=== PATIENT | female | born 1960 | race African-American/Black ===

== ENCOUNTER 2018-12-28 05:50 | Inpatient (IN) | payer BC ==
[2018-12-21 12:50] LABS: HEMATOCRIT 40.1 % (37.0-47.0); MCH 28.9 pg (26.0-34.0); MCHC 32.4 g/dL (28.0-37.0); MCV 89.4 fL (80.0-100.0); RBC 4.49 mil/uL (4.20-5.00); RDW 14.5 % (10.5-14.5); WBC 6.3 thou/uL (4.0-11.0)
[2018-12-21 12:58] LABS: ALBUMIN 3.9 g/dL (3.4-5.0); CALCIUM 9.7 mg/dL (8.5-10.1); CREATININE 0.7 mg/dL (0.6-1.0); POTASSIUM 4.4 mmol/L (3.5-5.1)
[2018-12-21 13:01] LABS: PROTIME 9.4 Seconds (9.3-11.4)
[2018-12-21 13:13] LABS: URINE BILIRUBIN NEGATIVE (Negative); URINE BLOOD NEGATIVE (Negative); URINE CLARITY CLEAR; URINE COLOR YELLOW; URINE GLUCOSE-RANDOM* NEGATIVE (Negative); URINE KETONES NEGATIVE (Negative); URINE LEUKOCYTES-REFLEX NEGATIVE (Negative); URINE NITRITE-REFLEX NEGATIVE (Negative); URINE PROTEIN (DIPSTICK) NEGATIVE (Negative); URINE SPECIFIC GRAVITY 1.025 (1.005-1.035); URINE UROBILINOGEN 0.2 E.U./dl (0.2-1.0)
--- NOTE | 2018-12-21 16:17 | EKG ---
[address] [place] [address] ELECTROCARDIOGRAM REPORT Name: OTF ZAMARRIPA Room #: PRE IN M.R.#: [id number] ������������������ Admission: ������������������ Attend Phys: Ish Rodriguez MD Discharge: ������������������ Date of : 62 Report #: [id number] ����������������������������������������������������������������� [id number] THIS REPORT FOR: //name// [facility] Test Date: 2018-12-21 Test Time: 13:14:55 Pat Name: OTF ZAMARRIPA Department: Room: Gender: F Intervention Analyst: landon : 1960 Requested By: Ish Rodriguez Order Number: [id number] MD: Mckinley Riddle Measurements Intervals Brandt Rate: 71 P: 42 ME: 161 QRS: 1 QRSD: 82 T: 8 QT: 374 QTc: 407 Interpretive Statements Sinus rhythm Normal tracing Compared to ECG 02/15/2009 16:38:35 No significant changes Electronically Signed On 12-21-2018 16:17:20 CRACKING UNIT OPERATOR by Mckinley Riddle [email or web address] ��������������������������������������������� <ELECTRONICALLY SIGNED> ���������������������������������������� By: Mckinley Riddle MD, [facility] ��������������������������������������������� 12/21/18 1617 1314 1314 Mckinley Riddle MD, FACC /EPI
[~2018-12-28] VITALS: Ht 157.5 cm; Wt 99.3 kg
--- NOTE | ~2018-12-28 | O ---
[facility] [place] [address] OPERATIVE REPORT Name: OTF ZAMARRIPA Room #: 418-P ADM IN M.R.#: [id number] Admission: 12/28/18 ������������������ Attend Phys: Ish Rodriguez MD Discharge: ������������������ Date of : 62 Report #: [id number] THIS REPORT FOR: //name// CC: ROLY ALLEN Physician staff Ish Rodriguez DATE OF SERVICE: 12/28/2018 PREOPERATIVE DIAGNOSIS: Right knee osteoarthritis. POSTOPERATIVE DIAGNOSIS: Right knee osteoarthritis. PROCEDURE: Right total knee arthroplasty using Navio robotic assistance. SURGEON: Ish Rodriguez MD TOOL ENGINE LATHE SET UP OPERATOR: Cammie Ervin PA-C. INDICATION FOR ASSISTANCE: Throughout the case, extensive retraction and manipulation of the knee was required. This was afforded to me by my anesthesiology physician assistant. ANESTHESIA: LMA with an adductor canal block. IMPLANTS: [employer]hew size 5 Journey II BCS Oxinium femur, a size 3 tibia, a size 11 polyethylene and a size 32 patella. TOURNIQUET TIME: 70 minutes. ESTIMATED BLOOD LOSS: 25 mL. COMPLICATIONS: None. SPECIMENS: None. CONDITION UPON LEAVING THE OPERATING ROOM: Stable. INDICATIONS FOR PROCEDURE: The patient is a 58-year-old female with severe right knee osteoarthritis. She has failed conservative measures for this and after discussion with her, she elected for right total knee arthroplasty. DESCRIPTION OF PROCEDURE: Risks, benefits, alternatives, complications were discussed in detail with the patient including but not limited to risk of anesthesia, risk of damage to nerves, arteries and blood vessels, risk for infection and bleeding, risk for continued knee pain and need for reoperation. Informed consent was obtained from the patient. The right knee was [facility] [address] [place] [address] OPERATIVE REPORT Name: OTF ZAMARRIPA Room #: 418-P ADM IN M.R.#: [id number] Admission: 12/28/18 ������������������ Attend Phys: Ish Rodriguez MD Discharge: ������������������ Date of : 62 Report #: [id number] appropriately marked in the preoperative holding area. Adductor canal block was placed by Anesthesia. She was brought to the operating room and placed in the supine position on operating room table. LMA anesthesia was induced without complication. Tourniquet was placed on the right thigh. Right lower extremity was prepped and draped in normal sterile fashion. Timeout was performed properly identifying the patient and procedure as well as the instrumentation and the implants. All in the operating room were in agreement. Right lower extremity was exsanguinated. Tourniquet was inflated. Tourniquet time was 70 minutes. A standard midline approach to the knee was made with a 10 blade through the skin. Dissection was taken down sharply to the fascia. Deep flaps were developed medially and laterally. A fresh 10 blade was used to make a medial parapatellar arthrotomy and the knee was inspected. There was severe tricompartmental osteoarthritis. ACL and PCL were removed sharply. Anterior horns of the meniscus were removed sharply and reference pins were placed into the femur and the tibia for the Navio system. The knee was then digitally mapped using the Navio robotic assistance. Intraoperative plan was made. We sized a size 5 femur and a size 3 tibia. After acceptance of an intraoperative plan, the distal femoral cut was made with a Navio bur. The femoral cutting block was then pinned in place and the femoral cuts were made. Attention was then turned to the tibia. Tibial resection was then made using the Navio system for placement of the resection guide. After this, flexion and extension gaps were checked and found to have good balance in flexion and extension both medially and laterally. The tibia was sized, found to be a size 3. A size 3 tibial trial was placed and then punched. A size 5 femoral trial was placed and a box cut was made. This was then trialed with a size 10 and then a size 11 polyethylene. The size 11 polyethylene had the best fit throughout range of motion with a millimeter laxity both medially and laterally throughout range of motion. A 5 mm was taken off the posterior surface of the patella and a size 32 patellar trial was placed. The knee was then taken through range of motion, found to have good patellar tracking. After this, trial components were removed. Bony ends were thoroughly irrigated with normal saline. A final size 3 tibia, a size 5 Journey II BCS Oxinium femur and a size 32 patella were cemented in place using standard cementation techniques. While the cement cured, a periarticular injection consisting of morphine, ropivacaine, epinephrine and Toradol was placed around the knee joint capsule. After the cement cured, the tourniquet was deflated. Hemostasis was obtained with Bovie cautery. A final size 11 polyethylene was placed. A gram of vancomycin was placed deep in the joint. Fascia was closed with 0 Vicryl, skin was closed with 2-0 Vicryl, 3-0 Monocryl. Dermabond and a OZ dressing was applied. The patient tolerated this procedure well and went to recovery room under care of Anesthesia postoperatively. ��������������������������������������������� ���������������������������������������� By: ��������������������������������������������� 1654 2101 Ish Rodriguez MD /nt
[~2018-12-28 05:50] MED LIST: ALEVE220 MG PO; APAP650 PO; CYMBALTA60 MG PO; FISH OIL 1,001000 M2 PO; HAIR, SKIN AND1 EAC1 PO; HAIR, SKIN AND1 EAC2 PO; HYDROCODON-ACE1 EAC8 PO; IBUPROFEN 400400 M1 PO; LIPITOR 20 MG T20 M1 PO; MELATONIN5 M1 PO; STOOL SOFTENER100 M1 PO; VITAMIN D3400 UNIT PO; VITAMIN E400 UNIT PO; ZANTAC 150MG T150 MG PO
[2018-12-28 11:10] VITALS: BP 137/81
--- NOTE | 2018-12-28 18:25 | NUR ---
PT ARRIVED 1645 PT ALERT XS 4 FLUIDS INFUSING. PT CLEAR LIQUID DIET. ICE TO RIGHT KNEE. FAMILY AT BEDSIDE . V.S. TAKEN NO PAIN.
[2018-12-28 18:39] VITALS: BP 142/90
[2018-12-28 19:42] VITALS: BP 154/92
[2018-12-29 00:01] VITALS: BP 150/88
[2018-12-29 01:45] VITALS: BP 158/80
[2018-12-29 06:18] LABS: HEMATOCRIT 33.1 % (37.0-47.0); HEMOGLOBIN 10.6 gm/dL (12.0-15.0); MCHC 32.1 g/dL (28.0-37.0); MCV 90.5 fL (80.0-100.0); RBC 3.65 mil/uL (4.20-5.00); RDW 14.5 % (10.5-14.5); WBC 8.3 thou/uL (4.0-11.0)
--- NOTE | 2018-12-29 06:39 | NUR ---
ASSUMED CARE AT 1900, ASSESSMENT COMPLETED. PT REPORTS MILD PAIN IN RIGHT KNEE, STILL SLIGHTLY NUMB FROM NERVE BLOCK. SWELLING IN RIGHT KNEE, WITH ICE PACK ON KNEE, OZ DRESSING INTACT. DENIES NAUSEA, TOLERATING DIET VERY WELL. DENIES SOB. ASKED FOR PAIN PILL ONCE THIS AM. CPAP ON OVERNIGHT. NO OTHER CONCERNS, WILL CONTINUE TO MONITOR.
[2018-12-29 07:30] VITALS: BP 128/81
[2018-12-29] MEDS ORDERED: NEURONTIN 300300 M1 PO (10:41)
[2018-12-29] MEDS ORDERED: TRI-BUFFERED A325 M1 PO (10:41)
--- NOTE | 2018-12-29 12:43 | NUR ---
ASSESSMENT-PT LIVES AT HOME WITH HER . SHE SAYS SHE HAS A WALKER AT HOME ALREADY THAT SHE CAN USE. PT SAYS SHE HAS HER OUTPT APPT ALREADY WELL. PT HAS 6 STEPS WITH A RAIL TO ENTER THE HOME THEN ALL ON THAT LEVEL. IN GOOD HEALTH AND ABLE TO ASSIST HER AT HOME. PT HAS OTHER FAMILY IN THE AREA WELL TAHT CAN ASSIST. FOLLOWING TO ASSIST WITH DC PLANNING.
--- NOTE | 2018-12-29 13:23 | NUR ---
PT UP IN BEDSIDE CHAIR. STATES NO PAIN OR RESP DISTRESS. HAS FLUIDS INFUSING. HAS ICE TO RIGHT KNEE.EATING REGULAR DIET. CONT OF BOWEL AND BLADDER.
[2018-12-29 16:20] VITALS: BP 128/81
--- NOTE | 2018-12-29 16:28 | NUR ---
DISCHARGE PAPERS GONE OVER WITH PATIENT. SIGNED AND COPY IN CHART. IV ACSESS DCD, ALL BELONGINGS PACKED AND SENT WITH PATIENT.
[2018-12-29 16:30] VITALS: BP 128/81
== END 2018-12-29 16:24 | disposition home or self-care (01) | DRG 470 ==
LOC: TBA 05:50 → 4E 05:50 → PRE 06:07 → 4E 16:32
PROVIDERS: ADMIT Orthopaedic Surgery
DX: M17.11 Unilateral primary osteoarthritis, right knee (principal); Z79.82 Long term (current) use of aspirin; Z79.899 Other long term (current) drug therapy
CPT/HCPCS: 10783; 50010; 50101; 50415; 50954; 51130; 51225; 53000; 53078; 54118; 55372; 56527; 56528; 57095; 57103; 57109; 57110; 57113; 57127; 57180; 62110; 62900; 64043; 65060; 70005